=== PATIENT | female | born 1995 | race Caucasian/White ===

== ENCOUNTER 2017-03-21 09:52 | Day surgery (SDC) | payer BC ==
[~2017-03-21 09:52] MED LIST: Buffered Lidocaine 0.9% SYRIN* 5 ML/SYR SYRINGE INTRADERM ONE
[2017-03-21] MEDS ORDERED: ceFAZolin 2 GM PREMIX(*) 2 GM/50 ML BAG IVPB ONE (10:35)
[2017-03-21] MEDS ORDERED: Buffered Lidocaine 0.9% SYRIN* 5 ML/SYR SYRINGE ONE (10:36)
[2017-03-21] MEDS ORDERED: Midazolam* 1 MG/ML 2 ML VIAL (2 MG) ONE (11:05)
[2017-03-21] MEDS ORDERED: fentaNYL* 50 MCG/ML 2 ML VIAL (100 MCG VIAL) ONE ×3 (11:05→13:34)
[2017-03-21] MEDS ORDERED: Bupivacaine 0.25% SDV* 30 ML ONE (11:09)
[2017-03-21] MEDS ORDERED: Famotidine IV* 10 MG/ML 2 ML (20 mg) ONE (11:25)
[2017-03-21] MEDS ORDERED: Ondansetron INJ* 2 MG/ML VIAL ONE (11:38)
[2017-03-21] MEDS ORDERED: Propofol* 10 MG/ML 20 ML BTL IV PUSH ONE (11:38)
[2017-03-21] MEDS ORDERED: Dexamethasone IV* 4 MG/ML 1 ML (4 MG) ONE (11:38)
[2017-03-21] MEDS ORDERED: Ketorolac INJ* 30 MG/ML 1 ML VIAL ONE (11:38)
[2017-03-21] MEDS ORDERED: Lidocaine 2% PF * 5 ML VIAL ONE (11:38)
[2017-03-21] MEDS ORDERED: PROCHLORPERAZINE INJ 5 MG/ML 2 ML VIAL IV PRN (12:17)
[2017-03-21] MEDS ORDERED: fentaNYL* 50 MCG/ML 2 ML VIAL (100 MCG VIAL) IV PRN (12:17)
[2017-03-21] MEDS ORDERED: Ondansetron INJ* 2 MG/ML VIAL IV PRN (12:17)
[2017-03-21] MEDS ORDERED: DiMENhydriNATE IV* 50 MG/ML VIAL IV PUSH PRN (12:17)
[2017-03-21] MEDS ORDERED: Acetaminophen TAB* 325 MG PO PRN (12:17)
[2017-03-21] MEDS ORDERED: HYDROcodone/ACETAMIN 5-325 MG* 1 TAB PO PRN (12:17)
[2017-03-21 15:24] VITALS: BP 106/54
--- NOTE | 2017-03-22 10:55 | OP ---
OPERATIVE REPORT: DATE OF OPERATION: 03/21/17 DATE OF : 89 SURGEON: Caleb Royal MD CARD TABLE ATTENDANT: EM Miller ANESTHESIOLOGIST: Dr. Caceres. ANESTHESIA: General. PRE-OP DIAGNOSIS: Left Galeazzi fracture-dislocation. POST-OP DIAGNOSIS: Left Galeazzi fracture-dislocation. OPERATIVE PROCEDURE: Repair of left Galeazzi fracture-dislocation with open reduction internal fixa tion of the left radial shaft fracture and percutaneous pinning of the left distal radioulnar joint. INDICATIONS: Adeline is a 21-year-old female, who had a fall from a significant height. She sustain ed a left forearm injury and was seen at [facility] where x-rays were taken. She was s plinted and followed up in my office. We talked about risks and benefits of surgery. She elected t o proceed. ESTIMATED BLOOD LOSS: 10 mL. COMPLICATIONS: None. FINDINGS: A very unstable distal radioulnar joint, but easily reducible. DESCRIPTION OF PROCEDURE: Adeline was seen in the preoperative holding area, the correct site, side, and procedure were identified. We came back to the operating room where anesthesia was induced. W e prepped and draped the arm in the usual fashion with a thorough pre-scrub and then a formal time-o ut was performed. I began by marking my incision over the FCR tendon sheath and proceeding proximally towards the medi al aspect of the distal biceps tendon. I used mini C-arm to center the incision over the fracture. The arm was exsanguinated with the Esmarch and the tourniquet inflated to 250 mmHg. The dissection was carried down to the FCR tendon sheath. This was sharply incised. The FCR tendon was retracted ulnarly. I developed the interval between the radial artery and the FCR tendon distally. The FPL was released off its radial origin to expose the distal radius distally. The pronator quadratus was released off the radial margin and reflected ulnarly to expose the distal radius metaphysis. The f racture site was encountered. There was a posterior butterfly fragment. The periosteum was elevate d with a periosteal elevator proximally to expose the fracture site. More proximally, the superfici al branch of the radial nerve and the radial artery were identified and protected throughout the yinka e. I did not have to release any of the pronator teres insertion as it was more proximal. With the fracture site exposed, I went ahead and cleaned it out with the use of irrigation and sucti on and the curette. The fracture fragments were then reduced and clamped into place. I then placed one 2.7-mm countersunk lag screw to lag back together the proximal fragment and the butterfly fragm ent posteriorly. There was anatomic reduction, the screw was still seen a little bit proud and in t he trajectory of my anticipated subsequent plate placement, so I went ahead and removed the screw an d countersunk it some more and then replaced the screw so that it was sitting flush with the bone. I then went ahead and clamped that fragment to the distal fragment and placed another 2.7-mm lag scr ew to hold the fragments in anatomic reduction. At this point, I then brought in a 3.5-mm straight plate. Distally, it was sitting off proud. I thought a meta-diaphyseal plate would be better, so I brought in the Synthes meta-diaphyseal plates. The small plate was too short, the next size up was just about right. I would have liked one more screw proximally, but the next size up was clearly to o long and so I went ahead and picked that middle plate. This was then positioned and clamped into place proximally and distally. Again, the reduction was anatomic. There was just a bit of play bet ween the distal fragment at the distal fracture line, but I had everything clamped into place anatom ically. I checked the plate position. It was sitting off just a bit proud distally. Ultimately, I decided not to shift the plate any farther distally because I liked to position it a bit proximally and I thought I would get 3 nice screws proximally. I went ahead and placed one 3.5 cortical screw distally. I then placed two 3.5 cortical screws proximally sequentially in compression-type fashio n just to further squeeze the fracture in the anatomically reduced position. There was excellent co mpression generated in absolutely anatomic reduction. I then placed a third proximal screw in the n eutral position. I, at this point, brought in my 1.8-mm locking tower of the distal radius set. Th is was screwed into place and then the four 2.4-mm locking screws were placed distally. I checked t he imaging. Everything looked very nice except for my first lag screw had gotten a bit long dorsall y after I had re-countersunk the screw. Ultimately, it was just a bit too long and I decided not to shorten this because it would have necessitated removing the plate and all of the screws and I did not think it was too long to bother her. I went ahead and added one more distal 3.5-mm cortical scr ew in the remaining hole. I then, at this point, turned my attention to the distal radioulnar joint . I checked the stability of the DRUJ in supination, pronation, and neutral position. It was very unst able volarly. I decided to go ahead and pin the joint. I went ahead and placed one 0.062 K-wire pr oximally. I then brought in the C-arm to confirm the position. That wire looked a bit too proximal . I, therefore, went ahead and backed it out just into the ulna. I went ahead and placed a second 0.062 K-wire little more distal, just proximal to the DRUJ and advanced it through all 4 cortices. I decided my first wire was just too proximal, so I pulled it out and then placed a second 0.062 K-w janine just a bit distal to the other wire, again going through all 4 cortices. I then checked my redu ction of the DRUJ on the AP and lateral views. It looked like it was nicely reduced. She was also very thin and so I was able to palpate the DRUJ and it felt nicely reduced. At this point, I clippe d and bent my 0.062 K-wires. The wound was copiously irrigated. The pronator quadratus was repaire d with 3-0 Polysorb suture. The subcutaneous tissue was reapproximated with some buried 3-0 Polysor b subdermal stitches. The skin was closed with 4-0 nylon horizontal mattress sutures. All the oper ative sites were infiltrated with 0.25% plain Marcaine. The wounds were dressed with Xeroform, 4x4, sterile Webril. I placed pin caps over the K-wires. The pins were dressed with some Xeroform and 4x4s. I then went ahead and placed a sugar-tong splint. The forearm had been pinned in neutral rot ation. Tourniquet was deflated. The fingers pinked up immediately. She was then woken up and take n to the recovery room in stable condition. [id number]/[facility] #: [id number]
--- NOTE | 2017-03-23 12:38 | RAD ---
CPT II Codes: 6045F INDICATION: Left radius fracture. TECHNIQUE: Intraoperative fluoroscopy was provided during plate and screw fixation of a left radius fracture. FINDINGS: 99 spot films depict application of a plate and screw fixator overlying the left radius.. Fluoroscopy time: 2 minutes and 27 seconds IMPRESSION: As above.
== END 2017-03-21 15:41 | disposition home or self-care (01) ==
LOC: OREAST 09:52
PROVIDERS: ATTEND Orthopaedic Surgery Hand Surgery
DX: S52.372A Galeazzi's fracture of left radius, initial encounter for closed fracture (principal); W15.XXXA Fall from cliff, initial encounter; Y92.89 Other specified places as the place of occurrence of the external cause
CPT/HCPCS: 76000; C1713; C1776; J0690; J1100; J1885; J2250; J2405; J2704; J3010